=== PATIENT | female | born 1955 | race Caucasian/White ===

== ENCOUNTER 2021-02-06 02:22 | Emergency (ER) | payer OTHER ==
[~2021-02-06] VITALS: Ht 162.6 cm; Wt 79.4 kg
--- NOTE | ~2021-02-06 | EMS ---
[place] [address] EMS Patient Care Report Name: PROSPER GOMEZ [id number] Admission: 02/06/21 Attend Phys: Discharge: 02/06/21 Date of : 59 Report #: [id number] THIS REPORT FOR: //name// Report Transmitted: 02/10/2021 14:27 EMS Care Summary [place], [place]/[facility] Incident [id number] @ 02/06/2021 02:05 Incident Location [address] [place] [address] Patient PROSPER GOMEZ Female, 65 Years 1955 Patient Address homeless Patient History Behavioral/Psychiatric Disorder,Substance Abuse, Patient Allergies No known allergies, Patient Medications None Reported, Chief Complaint FEET/FINGER PAIN Disposition Transported No Lights/[place] Dispatch Reason Heat/Cold Exposure Transported To [facility] Narrative RESPONDED TO COLD EXPOSURE [place] [employer] EMS AND REPORTS PT IS LAYING ON FLOOR REQUESTING EMS. PT FOUND LAYING ON FLOOR INSIDE ALERT AND ORIENTED BUT COMPLAINING OF FOOT/FINGER PAIN FROM COLD EXPOSURE 3 MONTHS AGO. PT REPORTS ALREADY BEING SEEN FOR THIS ISSUE BUT WANTS TO BE ASSESSED AGAIN. PT APPEARS TO HAVE SOME SPOTS OF [place] [address] EMS Patient Care Report Name: PROSPER GOMEZ Room #: DEP Dejuan#: [id number] Admission: 02/06/21 Attend Phys: Discharge: 02/06/21 Date of : 59 Report #: [id number] [place]. PT WALKS TO [facility] AND [facility] APPLIED. PT VITALS OBTAINED. PT TRANSPORTED TO [facility] WITH NO CHANGES. PT WALKED TO TRIAGE AND REPORT GIVEN TO NURSE. Initial Vitals @02:18P: 92,R: 18,BP: 149/91,SpO2: 96, @02:14P: 93,R: 16,BP: 150/90,Pain: 0/10,GCS: 15,SpO2: 95,Revised Trauma: 12, Assessments @02:12MENTAL:Person Oriented,Event Oriented,Place Oriented,Time Oriented,SKIN:HEENT:Head/Face: No Abnormalities,Neck/Airway: No Abnormalities,LUNG SOUNDS:General: No Abnormalities,Left Upper: No Abnormalities,Right Upper: No Abnormalities,Left Lower: No Abnormalities,Right Lower: No Abnormalities,ABDOMEN:General: No Abnormalities,Left Upper: No Abnormalities,Right Upper: No Abnormalities,Left Lower: No Abnormalities,Right Lower: No Abnormalities,PELVIS//GI:No Abnormalities,EXTREMITIES:Right Arm: Other,Left Arm: Other,Left Leg: No Abnormalities,Right Leg: No Abnormalities,PULSE:Radial: 2+ Normal,NEURO:No Abnormalities, Impression Extremity Pain Procedures @02:12 ALS Assessment Response: UnchangedSucceeded Timeline 02:04,Call Received 02:04,Dispatch Notified 02:05,Dispatched 02:07,En Route 02:11,On Scene 02:12,At Patient 02:12,ALS Assessment,Response: UnchangedSucceeded, 02:14,Depart Scene 02:14,BP: 150/90 M,PULSE: 93,RR: 16 R,SPO2: 95 Ox,ETCO2: ,BG: ,PAIN: 0,GCS: 15, 02:18,BP: 149/91 M,PULSE: 92,RR: 18 R,SPO2: 96 Ox,ETCO2: ,BG: ,PAIN: ,GCS: , 02:24,At Destination 02:27,Call Closed Disclaimer v1.1 Copyright 2020 [employer] This EMS Care Summary contains data elements from the applicable legal record (which may be displayed differently). It is designed to provide pertinent information for the following purposes: continuity of care, clinical quality, and state data reporting. The complete [place] [address] EMS Patient Care Report Name: PROSPER GOMEZ Room #: DEP ER Dejuan#: [id number] Admission: 02/06/21 Attend Phys: Discharge: 02/06/21 Date of : 59 Report #: [id number] and administrators of the receiving hospital in ES's Patient Tracker. All data is provided "as is."
--- NOTE | ~2021-02-06 | EMS ---
[place] [address] EMS Patient Care Report Name: PROSPER GOMEZ [facility] [id number] Admission: 02/06/21 Attend Phys: Discharge: 02/06/21 Date of : 59 Report #: [id number] THIS REPORT FOR: //name// Report Transmitted: 02/07/2021 14:12 EMS Care Summary [place], [place]/[facility] Incident [id number] @ 02/06/2021 02:05 Incident Location [address] [place] [address] Patient PROSPER GOMEZ Female, 65 Years 1955 Patient Address homeless Patient History Behavioral/Psychiatric Disorder,Substance Abuse, Patient Allergies No known allergies, Patient Medications None Reported, Chief Complaint FEET/FINGER PAIN Disposition Transported No Lights/[place] Dispatch Reason Heat/Cold Exposure Transported To [facility] Narrative RESPONDED TO COLD EXPOSURE AT [employer] GREETS EMS AND REPORTS PT IS LAYING ON FLOOR REQUESTING EMS. PT FOUND LAYING ON FLOOR INSIDE ALERT AND ORIENTED BUT COMPLAINING OF FOOT/FINGER PAIN FROM COLD EXPOSURE 3 MONTHS AGO. PT REPORTS ALREADY BEING SEEN FOR THIS ISSUE BUT WANTS TO BE ASSESSED AGAIN. PT APPEARS TO HAVE SOME SPOTS OF [place]IS [place] [address] EMS Patient Care Report Name: PROSPER GOMEZ Room #: DEP Dejuan#: [id number] Admission: 02/06/21 Attend Phys: Discharge: 02/06/21 Date of : 59 Report #: [id number] [place]. PT WALKS TO [facility] AND [facility] APPLIED. PT VITALS OBTAINED. PT TRANSPORTED TO [facility] WITH NO CHANGES. PT WALKED TO TRIAGE AND REPORT GIVEN TO NURSE. Initial Vitals @02:18P: 92,R: 18,BP: 149/91,SpO2: 96, @02:14P: 93,R: 16,BP: 150/90,Pain: 0/10,GCS: 15,SpO2: 95,Revised Trauma: 12, Assessments @02:12MENTAL:Time Oriented,Place Oriented,Event Oriented,Person Oriented,SKIN:HEENT:Head/Face: No Abnormalities,Neck/Airway: No Abnormalities,LUNG SOUNDS:General: No Abnormalities,Left Upper: No Abnormalities,Right Upper: No Abnormalities,Left Lower: No Abnormalities,Right Lower: No Abnormalities,ABDOMEN:General: No Abnormalities,Left Upper: No Abnormalities,Right Upper: No Abnormalities,Left Lower: No Abnormalities,Right Lower: No Abnormalities,PELVIS//GI:No Abnormalities,EXTREMITIES:Left Arm: Other,Right Arm: Other,Left Leg: No Abnormalities,Right Leg: No Abnormalities,PULSE:Radial: 2+ Normal,NEURO:No Abnormalities, Impression Extremity Pain Procedures @02:12 ALS Assessment Response: UnchangedSucceeded Timeline 02:04,Call Received 02:04,Dispatch Notified 02:05,Dispatched 02:07,En Route 02:11,On Scene 02:12,At Patient 02:12,ALS Assessment,Response: UnchangedSucceeded, 02:14,Depart Scene 02:14,BP: 150/90 M,PULSE: 93,RR: 16 R,SPO2: 95 Ox,ETCO2: ,BG: ,PAIN: 0,GCS: 15, 02:18,BP: 149/91 M,PULSE: 92,RR: 18 R,SPO2: 96 Ox,ETCO2: ,BG: ,PAIN: ,GCS: , 02:24,At Destination 02:27,Call Closed Disclaimer v1.1 Copyright 2020 [employer] This EMS Care Summary contains data elements from the applicable legal record (which may be displayed differently). It is designed to provide pertinent information for the following purposes: continuity of care, clinical quality, and state data reporting. The [place] [address] EMS Patient Care Report Name: PROSPER GOMEZ Room #: DEP ER Dejuan#: [id number] Admission: 02/06/21 Attend Phys: Discharge: 02/06/21 Date of : 59 Report #: [id number] and administrators of the receiving hospital in ES's Patient Tracker. All data is provided "as is."
[2021-02-06 02:25] VITALS: BP 148/89
[2021-02-06] MEDS ORDERED: CEPHALEXIN500 MG PO (02:39)
== END 2021-02-06 02:50 | disposition home or self-care (01) ==
LOC: ER 02:22
DX: I96 Gangrene, not elsewhere classified (principal); M79.644 Pain in right finger(s); Z59.00 Homelessness unspecified

== ENCOUNTER 2021-02-06 10:11 | Emergency (ER) | payer OTHER ==
[~2021-02-06 10:11] MED LIST: CEPHALEXIN500 MG PO
== END 2021-02-06 10:23 | disposition left against medical advice (07) ==
LOC: ER 10:11
DX: Z00.8 Encounter for other general examination (principal); Z53.21 Procedure and treatment not carried out due to patient leaving prior to being seen by health care provider